=== PATIENT | female | born 1930 | race Caucasian/White ===

== ENCOUNTER 2018-01-11 21:40 | Emergency (ER) | payer OTHER ==
[~2018-01-11] VITALS: Ht 167.6 cm; Wt 81.6 kg
[2018-01-11 21:42] VITALS: BP_SYST 129
[2018-01-11] MEDS ORDERED: NACL 0.9% 1,000 ML IV ONE (21:48)
[2018-01-11 22:11] LABS: BASOPHILS # (AUTO) 0.1 K/uL (0.0-0.2); BASOPHILS % (AUTO) 0.6 % (0.0-2.0); EOSINOPHILS # (AUTO) 0.4 K/uL (0.0-0.4); EOSINOPHILS % (AUTO) 4.6 % (0.0-4.0); HEMATOCRIT 27.5 % (36-48); HEMOGLOBIN 8.9 g/dL (12.0-16.0); LYMPHOCYTES # (AUTO) 1.3 K/uL (1.0-5.5); MEAN CORPUSCULAR HEMOGLOBIN 31 pg (27-31); MEAN CORPUSCULAR HGB CONC 33 % (32-36); MEAN CORPUSCULAR VOLUME 94 fL (79.0-98.0); MONOCYTES # (AUTO) 0.8 K/uL (0.0-1.0); MONOCYTES % (AUTO) 8.4 % (1.7-9.3); NEUTROPHILS # (AUTO) 6.6 K/uL (1.8-7.7); NEUTROPHILS % (AUTO) 72.4 % (40.0-70.0); PLATELET COUNT (AUTO) 278 K/uL (130-430); RED BLOOD CELL COUNT(AUTO) 2.93 MIL/uL (4.2-6.2); RED CELL DISTRIBUTION WIDTH 13.3 % (9.0-15.0); WHITE BLOOD COUNT (AUTO) 9.2 K/uL (4.8-10.8)
[2018-01-11 22:31] LABS: ANION GAP 8 (5-15); CALCIUM 9.6 mg/dL (8.4-11.0); CHLORIDE 97 mmol/L (98-107); CREATININE 2.06 mg/dL (0.55-1.30); GLUCOSE 107 mg/dL (70-99); POTASSIUM 4.5 mmol/L (3.5-5.1); SODIUM SERUM 130 mmol/L (136-145); UREA NITROGEN, BLOOD 36 mg/dL (8-21)
[2018-01-11 22:37] LABS: ALANINE AMINOTRANSFERASE 22 U/L (12-78); ALBUMIN 3.2 g/dL (3.4-4.8); AMYLASE 175 U/L (0-100); ASPARTATE AMINOTRANSFERASE 17 U/L (10-37); LIPASE 302 U/L (73-393); TOTAL BILIRUBIN 0.3 mg/dL (0.0-1.0)
[2018-01-11 22:40] LABS: PROTHROMBIN TIME 9.9 SECS (9.5-12.5)
[2018-01-11 22:42] LABS: BILIRUBIN,URINE NEGATIVE (NEGATIVE); BLOOD, URINE NEGATIVE (NEGATIVE); CLARITY/URINE SL HAZY (CLEAR); COLOR,URINE YELLOW (YELLOW); GLUCOSE,URINE NEGATIVE (NEGATIVE); KETONES,URINE NEGATIVE (NEGATIVE); LEUKOCYTE ESTERASE ,URINE 2+ (NEGATIVE); NITRITE, URINE POSITIVE (NEGATIVE); PROTEIN URINE NEGATIVE (NEGATIVE); UROBILINOGEN,URINE 0.2 (0.2-1.0)
[2018-01-11 22:57] LABS: BACTERIA,URINE MANY /HPF (None Seen); RBC,URINE 0-3 /HPF (0-3); WBC,URINE 50-80 /HPF (0-3)
[2018-01-11] MEDS: cefTRIAXone 1 GM IVPB PREMIX 50 ML IV ONE ×2 (23:26→23:39)
[2018-01-11] MEDS ORDERED: ACET-2165 PO (23:36)
[2018-01-11] MEDS ORDERED: ASPI-859 PO (23:37)
[2018-01-11] MEDS ORDERED: CLOP75TA32 PO (23:37)
[2018-01-11] MEDS ORDERED: MELO15TA13 PO (23:37)
[2018-01-11] MEDS ORDERED: SIMV20TA2 PO (23:37)
[2018-01-11] MEDS ORDERED: LEVO50TA8 PO (23:37)
[2018-01-11] MEDS ORDERED: FURO-149 PO (23:37)
[2018-01-11] MEDS ORDERED: BACL10TA PO (23:37)
[2018-01-11] MEDS ORDERED: POTA8TAB4 PO (23:37)
[2018-01-11] MEDS ORDERED: BENA40TA2 PO (23:37)
[2018-01-11] MEDS ORDERED: LORA10TA7 PO (23:37)
[2018-01-11] MEDS ORDERED: ALBMDI INH (23:37)
[2018-01-12 01:20] VITALS: BP_SYST 132
== END 2018-01-12 01:20 | disposition home or self-care (01) ==
LOC: SED 21:40
DX: R55 Syncope and collapse (principal); K59.00 Constipation, unspecified; N39.0 Urinary tract infection, site not specified; J44.9 Chronic obstructive pulmonary disease, unspecified; Z90.710 Acquired absence of both cervix and uterus; Z88.5 Allergy status to narcotic agent; Z79.899 Other long term (current) drug therapy
CPT/HCPCS: 36415; 71045; 80053; 81000; 82150; 82550; 83605; 83690; 84484; 85025; 85610; 85730; 87040; 87086; 93005; 96361; 96365; 99285; J0696; J7030

== ENCOUNTER 2018-03-22 02:30 | Inpatient (IN) | payer BC, OTHER ==
[2018-03-22] VITALS (7 sets, daily range): BP systolic 131–177
[~2018-03-22] VITALS: Ht 165.1 cm; Wt 85.7 kg
[~2018-03-22 02:30] MED LIST: ACET-2165 PO; ALBMDI INH; ASPI-859 PO; BACL10TA PO; BENA40TA2 PO; CLOP75TA32 PO; FURO-149 PO; LEVO50TA8 PO; LORA10TA7 PO; MELO15TA13 PO; POTA8TAB4 PO; SIMV20TA2 PO
--- NOTE | 2018-03-22 02:30 | NUR ---
Patient to ER bed 6 to gown for evaluation. Side rails up. Report given to CLAY Dunlap.
--- NOTE | 2018-03-22 02:45 | NUR ---
Patient came in complaining of nausea, diarrhea, dizziness for 4 hours. Pt denies being in any pain. Pt has a fever of 100.2 in the ED. Pt has history of hyperlipidemnia, syncope, muscle weakness, COPD, Diabetes type 2, hypothyroidism, pylonephrititis, TIA. Pt states that she has weakness on both arms and is unable to move them due to falling so many times. Both bilateral legs appear to be warm and hard to move. No other complaints/injuries. Will cont .to monitor.
--- NOTE | 2018-03-22 03:00 | NUR ---
ER at bedside examining patient.
[2018-03-22] MEDS ORDERED: NACL 0.9% 1,000 ML IV ONE (03:45)
--- NOTE | 2018-03-22 04:24 | NUR ---
# 14 FR In and Out catheter with use of sterile technique. Immediate return of 150 ml yellow urine noted. Pt tolerated procedure well.
[2018-03-22 04:38] LABS: BASOPHILS % (AUTO) 0.2 % (0.0-2.0); EOSINOPHILS % (AUTO) 0.2 % (0.0-4.0); HEMATOCRIT 36.2 % (36-48); HEMOGLOBIN 11.9 g/dL (12.0-16.0); LYMPHOCYTES # (AUTO) 0.4 K/uL (1.0-5.5); LYMPHOCYTES % (AUTO) 2.6 % (20.5-51.5); MEAN CORPUSCULAR HEMOGLOBIN 31 pg (27-31); MEAN CORPUSCULAR HGB CONC 33 % (32-36); MEAN CORPUSCULAR VOLUME 94 fL (79.0-98.0); MONOCYTES % (AUTO) 6.7 % (1.7-9.3); NEUTROPHILS # (AUTO) 13.4 K/uL (1.8-7.7); NEUTROPHILS % (AUTO) 90.3 % (40.0-70.0); PLATELET COUNT (AUTO) 240 K/uL (130-430); RED BLOOD CELL COUNT(AUTO) 3.87 MIL/uL (4.2-6.2); WHITE BLOOD COUNT (AUTO) 14.8 K/uL (4.8-10.8)
[2018-03-22 04:45] LABS: ANION GAP 9 (5-15); CALCIUM 9.6 mg/dL (8.4-11.0); CHLORIDE 102 mmol/L (98-107); CREATININE 1.21 mg/dL (0.55-1.30); GLUCOSE 151 mg/dL (70-99); POTASSIUM 4.6 mmol/L (3.5-5.1); SODIUM SERUM 135 mmol/L (136-145); UREA NITROGEN, BLOOD 24 mg/dL (8-21)
[2018-03-22] MEDS ORDERED: LEVOFLOXACIN 500 MG/D5W 100 ML IV ONE (04:45)
[2018-03-22 04:49] LABS: ALANINE AMINOTRANSFERASE 18 U/L (12-78); ALBUMIN 3.5 g/dL (3.4-4.8); ASPARTATE AMINOTRANSFERASE 14 U/L (10-37); TOTAL BILIRUBIN 0.4 mg/dL (0.0-1.0)
--- NOTE | 2018-03-22 05:00 | NUR ---
Dr. Elizabeth from insurance called in regards to Pt. MD Dr. Dennison informed and transferred call to.
[2018-03-22 05:06] LABS: BILIRUBIN,URINE NEGATIVE (NEGATIVE); BLOOD, URINE 1+ (NEGATIVE); CLARITY/URINE CLEAR (CLEAR); COLOR,URINE YELLOW (YELLOW); GLUCOSE,URINE NEGATIVE (NEGATIVE); KETONES,URINE NEGATIVE (NEGATIVE); LEUKOCYTE ESTERASE ,URINE NEGATIVE (NEGATIVE); NITRITE, URINE NEGATIVE (NEGATIVE); PH,URINE 5.5 (5.0-8.0); PROTEIN URINE NEGATIVE (NEGATIVE); UROBILINOGEN,URINE 0.2 (0.2-1.0)
[2018-03-22 05:15] LABS: BACTERIA,URINE FEW /HPF (None Seen); MUCUS,URINE None Seen /LPF (None Seen); WBC,URINE 0-3 /HPF (0-3); YEAST,URINE None Seen /HPF (None Seen)
--- NOTE | 2018-03-22 05:20 | NUR ---
Pt went to radiology in stable condition.
--- NOTE | 2018-03-22 05:30 | NUR ---
decision support manager, Sandra, called in regards to transferring patient. Sandra requested for paperwork to faxed in order to review case. Sandra stated, she will call back with more information.
--- NOTE | 2018-03-22 05:38 | NUR ---
Pt returned from radiology in stable condition.
--- NOTE | 2018-03-22 05:48 | NUR ---
first and second set of Blood cultures obtained.
--- NOTE | 2018-03-22 06:06 | NUR ---
Pt started on levoflaxcin IVF per MD order. Pt tolerating well. Will cont. to monitor.
[2018-03-22] MEDS ORDERED: fentaNYL CITRATE/PF 100 MCG/2 ML AMP IVP ONE (07:30)
[2018-03-22] MEDS ORDERED: ACETAMINOPHEN 325 MG TABLET PO PRN (07:30)
--- NOTE | 2018-03-22 07:30 | NUR ---
Pt medicated for pain. Pt tolerated well.
--- NOTE | 2018-03-22 08:05 | NUR ---
Patient will be admitted to care of . Admitted to MED/SURG unit. Will go to room 105B. Belongings list completed. Summary report printed. Report will be given at bedside.
--- NOTE | 2018-03-22 08:07 | NUR ---
ADMISSION NOTE Received patient from ER via germaine, received report from MICHAEL WILLIAMSON. Patient admitted with diagnosis of ACUTE COLITIS. Patient oriented to hospital routine, call light, toileting and safety-patient verbalized understanding.
--- NOTE | 2018-03-22 08:29 | NUR ---
CONSULT ID FEVER/ACUTE COLITIS DR KIRKLAND [phone] S/W MIKEY SEGURA
--- NOTE | 2018-03-22 08:30 | NUR ---
CONSULT GI ACUTE COLITIS DR BUENROSTRO [phone] DR PIZARRO FISHING TACKLE REPAIRER S/W MIKEY EXCHANGE
--- NOTE | 2018-03-22 09:55 | NUR ---
NOTE: RECEIVED REPORT FROM ISAIAH KHAN. PATIENT ASLEEP IN BED WITH NO SIGNS OF DISTRESS. PATIENT ON ROOM AIR. BED IN LOWEST POSITION WITH SIDE RAILS UP. CALL LIGHT IS IN REACH. WILL CONTINUE TO MONITOR.
[2018-03-22] MEDS: POTASSIUM CHLORIDE 20 MEQ in D5/0.45 NS 1,000 ML IV SCH ×2 (10:33→20:59)
--- NOTE | 2018-03-22 13:30 | NUR ---
NOTE: GAVE PATIENT SCHEDULED MEDICATION. PATIENT HAD BOWEL MOVEMENT. PATIENT WAS CLEANED AND REPOSITIONED. WILL CONTINUE TO MONITOR.
[2018-03-22] MEDS: metroNIDAZOLE 500 mg/NS 100 ML IV SCH ×2 (13:34→20:59)
[2018-03-22] MEDS ORDERED: LevALBUTEROL HCL 1.25 MG/0.5 ML *CONC.* VIAL.NEB (XOPENEX CONC.) INH PRN (14:15)
[2018-03-22] MEDS: ASPIRIN 81 MG TABLET(ECOTRIN) PO ONE ×2 (15:04→15:05)
--- NOTE | 2018-03-22 15:09 | NUR ---
NOTE: PATIENT ASLEEP IN BED WITH NO SIGNS OF DISTRESS. GAVE PATIENT SCHEDULED MEDICATION. PATIENT REFUSED ASPIRIN BECAUSE SHE SAID SHE TAKES IT WITH PLAV[facility] AND DR PIERCE ORDER THAT. PATIENT HAS NO FURTHER REQUESTS. WILL CONTINUE TO MONITOR.
[2018-03-22] MEDS: LevALBUTEROL HCL 1.25 MG/0.5 ML *CONC.* VIAL.NEB (XOPENEX CONC.) INH SCH ×2 (15:25→22:03)
[2018-03-22] MEDS: cefTRIAXone 1 GM in D5W 50 ML IV SCH (18:45)
--- NOTE | 2018-03-22 18:52 | NUR ---
CLOSING NOTE: PATIENT IN BED TALKING TO FAMILY AT BEDSIDE. PATIENT ON 2L NC. PATIENT HAS FLUIDS INFUSING. GAVE PATIENT SCHEDULED MEDICATIONS. WENT OVER PATIENT'S HOME MEDICATIONS WITH FAMILY. ADDED 2 THAT WERENT THERE YET. PATIENT COMPLAINING OF PAIN. GAVE TYLENOL. IF TYLENOL NOT WORKING WILL ENDORSE TO VIDEO GAMES MECHANIC NURSE TO GET STRONGER PAIN MEDICATIONS. BED ALARM IS ON AND CALL LIGHT IS IN REACH. BED IS IN LOWEST POSITION WITH SIDE RAILS UP. WILL CONTINUE TO MONITOR AND GIVE REPORT TO VIDEO GAMES MECHANIC NURSE.
[2018-03-22] MEDS ORDERED: DOCU-144 PO (19:37)
[2018-03-22] MEDS ORDERED: BACL10TA PO (19:37)
--- NOTE | 2018-03-22 19:40 | NUR ---
Initial Note Received patient asleep but easily arousable. Patient is alert and oriented. Denies any pain, n/v or SOB at this time. On O2 at 2L/min via NC. On bedrest. IVF infusing. Skin intact and no peripheral edema noted. Care and monitoring will be provided per protocol. Needs attended. Call light within reach. Bed alarm on and at lowest position at all times. Kept warm and comfortable.
--- NOTE | 2018-03-22 20:50 | NUR ---
RN Note Due meds given along with IV antibiotic. Repositioned. Needs attended. Kept warm and comfortable.
[2018-03-22] MEDS: PANTOPRAZOLE SODIUM 40 MG/VIAL (PROTONIX) IVP SCH (20:52)
[2018-03-22] MEDS: NYSTATIN 30 GM TOPICAL CREAM TP SCH (20:53)
--- NOTE | 2018-03-22 22:00 | NUR ---
RN Note Asleep but arousable. Repositioned. IVF infusing. Kept comfortable.
[2018-03-23] VITALS: BP_SYST 104
--- NOTE | 2018-03-23 | NUR ---
RN Note Patient arousable. Given water as requested. No complaints. IVF infusing. Repositioned. Kept warm and comfortable.
--- NOTE | 2018-03-23 03:00 | NUR ---
RN Note Patient sleeping comfortably in bed. IVF infusing. No signs of acute distress.
[2018-03-23] MEDS: metroNIDAZOLE 500 mg/NS 100 ML IV SCH ×3 (05:20→21:18)
--- NOTE | 2018-03-23 06:15 | NUR ---
End Note Afebrile. VS stable. No complain of pain, SOB or n/v throughout the night. On O2 at 2L/min via NC. IVF infusing. Had several diarrhea. Incontinence and skin care provided. IV antibiotic given as ordered. AM labs today. Needs attended. Care and monitoring provided per protocol. Call light within reach. Bed alarm on and at lowest position at all times. Reposition Q2. Kept clean, dry and comfortable. Fall and skin precaution observed.
[2018-03-23 07:11] LABS: ANION GAP 10 (5-15); CALCIUM 8.7 mg/dL (8.4-11.0); CHLORIDE 100 mmol/L (98-107); CREATININE 1.19 mg/dL (0.55-1.30); GLUCOSE 107 mg/dL (70-99); PHOSPHORUS 3.3 mg/dL (2.7-4.5); POTASSIUM 4.4 mmol/L (3.5-5.1); SODIUM SERUM 131 mmol/L (136-145); UREA NITROGEN, BLOOD 19 mg/dL (8-21)
[2018-03-23] MEDS: LevALBUTEROL HCL 1.25 MG/0.5 ML *CONC.* VIAL.NEB (XOPENEX CONC.) INH SCH ×3 (07:13→23:10)
[2018-03-23 07:43] LABS: BASOPHILS % (AUTO) 0.4 % (0.0-2.0); EOSINOPHILS # (AUTO) 0.1 K/uL (0.0-0.4); EOSINOPHILS % (AUTO) 1.1 % (0.0-4.0); HEMATOCRIT 31.3 % (36-48); HEMOGLOBIN 10.1 g/dL (12.0-16.0); LYMPHOCYTES # (AUTO) 0.5 K/uL (1.0-5.5); LYMPHOCYTES % (AUTO) 5.8 % (20.5-51.5); MEAN CORPUSCULAR HEMOGLOBIN 30 pg (27-31); MEAN CORPUSCULAR HGB CONC 32 % (32-36); MEAN CORPUSCULAR VOLUME 94 fL (79.0-98.0); MONOCYTES % (AUTO) 11.7 % (1.7-9.3); NEUTROPHILS # (AUTO) 7.1 K/uL (1.8-7.7); PLATELET COUNT (AUTO) 201 K/uL (130-430); RED BLOOD CELL COUNT(AUTO) 3.33 MIL/uL (4.2-6.2); WHITE BLOOD COUNT (AUTO) 8.7 K/uL (4.8-10.8)
--- NOTE | 2018-03-23 08:00 | NUR ---
MD ROUNDS SEEN BY DR. JUAREZ MD STATED TO KEEP ON CLEAR LIQUIDS FOR NOW.
--- NOTE | 2018-03-23 08:12 | NUR ---
OPENING NOTE PATIENT RECEIVED RESTING IN BED, PATIENT'S OXYGEN SATURATION IS 95% ON 2L NASAL CANNULA, PATIENT STATES SLIGHT PAIN IN RIGHT GROIN, NO ACUTE DISTRESS NOTED, ASSESSMENT COMPLETED, PATIENT TOLERATED BREAKFAST WELL, ASSESSMENT COMPLETED, EDUCATED PATIENT ON PLAN OF CARE AND CALL LIGHT SYSTEM, WILL CONTINUE TO MONITOR, SAFETY PRECAUTIONS IN PLACE, BED IN LOWEST POSITION, BED ALARM ON, CALL LIGHT WITHIN REACH.
[2018-03-23 08:22] VITALS: BP_SYST 147
[2018-03-23] MEDS: BENAZEPRIL HCL 20 MG TABLET (LOTENSIN) PO SCH (08:36)
[2018-03-23] MEDS: PANTOPRAZOLE SODIUM 40 MG/VIAL (PROTONIX) IVP SCH ×2 (08:36→21:18)
[2018-03-23] MEDS: HYDROcodone/ACETAMIN 5-325 MG TAB (NORCO/ VICODIN) PO PRN ×2 (08:37→18:36)
[2018-03-23] MEDS: NYSTATIN 30 GM TOPICAL CREAM TP SCH ×2 (08:39→21:26)
[2018-03-23] MEDS ORDERED: LEVOTHYROXINE SODIUM 0.05 MG TABLET PO SCH ×2 (09:00)
--- NOTE | 2018-03-23 10:18 | NUR ---
Nutrition Update Gómez Scale 14 noted. Pt admitted for acute colitis. Diet: clear liquid BMI: 31.6 kg/m2 RD to follow per nutrition care standards.
[2018-03-23] MEDS: POTASSIUM CHLORIDE 20 MEQ in D5/0.45 NS 1,000 ML IV SCH ×2 (10:19→19:43)
--- NOTE | 2018-03-23 11:15 | NUR ---
NOTES PATIENT HAD A BOWEL MOVEMENT, STOOL IS LOOSE AND DARK BROWN, STOOL SAMPLE SENT TO LAB, PATIENT WAS CLEANED AND POSITIONED FOR COMFORT, RIGHT GROIN PAIN IS CONTROLLED BY NORCO AT THIS TIME.
[2018-03-23 12:09] VITALS: BP_SYST 129
--- NOTE | 2018-03-23 14:12 | NUR ---
DC Planning: updated Linita/CM at [facility] # [phone], fax# . Pt. is on IV Flagyl, PO Levaquin,Na 131, pending Cdiff result.
--- NOTE | 2018-03-23 14:23 | NUR ---
NOTES PATIENT IS RESTING IN BED, PAIN IS CONTROLLED AT THIS TIME, PATIENT DENIES ANY ACUTE DISTRESS, SHORTNESS OF BREATH UPON EXERTION IS NOTED, WILL CONTINUE TO MONITOR, SAFETY PRECAUTIONS IN PLACE, CALL LIGHT WITHIN REACH.
[2018-03-23 16:00] VITALS: BP_SYST 153
--- NOTE | 2018-03-23 16:10 | NUR ---
SPOKE TO DR. JHONNY FRIED MADE AWARE OF MAGNESIUM LEVEL AND DVT PROPHYLAXIS.
[2018-03-23] MEDS: cefTRIAXone 1 GM in D5W 50 ML IV SCH (17:33)
--- NOTE | 2018-03-23 18:20 | NUR ---
CLOSING NOTE PATIENT RESTING IN BED, PAIN IS CONTROLLED AT THIS TIME, PATIENT TOLERATED DINNER WELL, IVF INFUSING WELL, SHORTNESS OF BREATH NOTED UPON EXERTION, ALL NEEDS WERE MET THROUGHOUT SHIFT, WILL ENDORSE REPORT TO ONCOMING NURSE, SAFETY PRECAUTIONS IN PLACE, BED ALARM ON, CALL LIGHT WITHIN REACH.
--- NOTE | 2018-03-23 18:35 | NUR ---
MD ROUNDS DR. BARRY AT BEDSIDE TALKING TO PATIENT AND FAMILY.
[2018-03-23] MEDS ORDERED: MAGNESIUM SULFATE 4 GM in D5W 250 ML IV ONE (18:45)
[2018-03-23] MEDS ORDERED: MAGNESIUM SULFATE IN WATER 100 ML IV ONE (18:49)
--- NOTE | 2018-03-23 19:30 | NUR ---
Initial Notes Received handoff report from offgoing nurse at the bedside. Patient is awake and alert, resting comfortably in bed. No SOB, no acute distress, no complaints of pain. Bed is locked, in the lowest position, 2x side rails up, bed alarm is on. Call light is within reach. Explained plan of care to the patient, patient verbalized understanding. Will continue with plan of care.
[2018-03-23 20:00] VITALS: BP_SYST 136
--- NOTE | 2018-03-23 21:45 | NUR ---
Patient is resting comfortably in bed with eyes closed, easily aroused by voice stimuli. No SOB, no acute distress, no complaints of pain at this time. Bed is locked, in the lowest position, 2x side rails up, bed alarm is on. Call light is within reach. Encouraged patient to call for assistance.
--- NOTE | 2018-03-24 00:17 | NUR ---
Patient is resting comfortably in bed with eyes closed. Breathing is even and unlabored with visible chest rise and fall noted. IV site is intact, currently infusing IVF at the ordered rate, see eMAR. Bed is locked, in the lowest position, 2x side rails up, bed alarm is on. Call light is within reach.
[2018-03-24 00:39] VITALS: BP_SYST 124
--- NOTE | 2018-03-24 03:09 | NUR ---
Patient is resting comfortably in bed. Provided more pillows for the patient per patient request. Bed is locked, in the lowest position, 2x side rails up, bed alarm is on. Call light is within reach. Encouraged patient to call.
--- NOTE | 2018-03-24 04:50 | NUR ---
Provided incontinence care for the patient. Patient is now clean and dry, resting comfortably in bed. Bed is locked, in the lowest position, 2x side rails up, bed alarm is on. Call light is within reach. Encouraged patient to call for assistance.
[2018-03-24] MEDS: HYDROcodone/ACETAMIN 5-325 MG TAB (NORCO/ VICODIN) PO PRN ×3 (06:05→21:05)
[2018-03-24] MEDS: LEVOTHYROXINE SODIUM 0.05 MG TABLET PO SCH (06:06)
[2018-03-24] MEDS: metroNIDAZOLE 500 mg/NS 100 ML IV SCH ×3 (06:18→21:05)
--- NOTE | 2018-03-24 07:35 | NUR ---
Closing Notes Handoff report given to oncoming dayshift nurse at the bedside. Patient is awake and alert, resting comfortably in bed. No SOB, no acute distress, no complaints of pain. Bed is locked, in the lowest position, 2x side rails up, bed alarm is on. Call light is within reach. Fall and safety precautions maintained. All needs have been met during this shift.
[2018-03-24] MEDS: LevALBUTEROL HCL 1.25 MG/0.5 ML *CONC.* VIAL.NEB (XOPENEX CONC.) INH SCH ×3 (07:37→23:13)
[2018-03-24 08:13] VITALS: BP_SYST 136
--- NOTE | 2018-03-24 08:16 | NUR ---
AM NOTES Patient is awake, alert, orientedx4 laying in bed. No s/s of acute distress, no SOB. Breathing even and unlabored. Left 20G IV site intact, patent, dressing is dry, no s/s of infiltration. Bed in lowest position, bed alarm on, call light within reach, oriented to room routine, patient verbalized understanding.
[2018-03-24] MEDS: PANTOPRAZOLE SODIUM 40 MG/VIAL (PROTONIX) IVP SCH ×2 (09:10→21:05)
[2018-03-24] MEDS: BENAZEPRIL HCL 20 MG TABLET (LOTENSIN) PO SCH (09:11)
[2018-03-24] MEDS: NYSTATIN 30 GM TOPICAL CREAM TP SCH ×2 (09:12→21:06)
--- NOTE | 2018-03-24 10:11 | NUR ---
Dr. Thompson is called about patient's home medication and DVT prophylaxis. Awaiting call back.
[2018-03-24] MEDS: ONDANSETRON HCL 4 MG/2 ML VIAL IVP PRN ×2 (10:57→16:04)
--- NOTE | 2018-03-24 11:00 | NUR ---
VOMITING Patient vomited moderate amount of brown emesis, liquid no sediments. Zofran given IVP. Patient placed in high fowlers position. Will cont. to monitor.
--- NOTE | 2018-03-24 11:30 | NUR ---
IV RE-INSERTION: Restarted a 22G on Right hand. Successful after 1 attempt, good back flow of blood, flushes well. Will observe for any signs of infiltration. Removed previous IV site, no active bleeding. Addendum: 03/24/18 at 1522 by Radha Palacios RN IV REINSERTION CORRECTION Left 20g IV site SL. Flushes well.
[2018-03-24 12:00] VITALS: BP_SYST 129
--- NOTE | 2018-03-24 12:48 | NUR ---
Dr. Thompson is called about patient's home medication and DVT prophylaxis. Awaiting call back.
[2018-03-24] MEDS: POTASSIUM CHLORIDE 20 MEQ in D5/0.45 NS 1,000 ML IV SCH (13:41)
--- NOTE | 2018-03-24 14:11 | NUR ---
ROUNDS Patient laying in bed resting, no s/s of distress or SOB. Patient consumed small portion of lunch, tolerated well. All morning and afternoon meds passed. IV site patent, intact, dressing is dry. Bilateral hands and legs elevated. Will cont. to monitor.
--- NOTE | 2018-03-24 15:09 | NUR ---
LAB AT BEDSIDE Lactic acid drawn.
--- NOTE | 2018-03-24 15:11 | NUR ---
Dietitian Recommendations * Recommend continuing clear liquid diet per MD * Recommend D/C Ensure Clear TID LP, RD Please refer to Nutrition Assessment for details.
[2018-03-24] MEDS ORDERED: IOHEXOL 100 ML IV ONE (15:25)
--- NOTE | 2018-03-24 15:30 | NUR ---
TAKEN TO CT Patient transported to CT angio with IV contrast. Consent signed.
--- NOTE | 2018-03-24 15:47 | NUR ---
BACK FROM CT Patient reconnected to IVF. Bed in lowest position, call light within reach. Will cont. to monitor.
--- NOTE | 2018-03-24 16:05 | NUR ---
Dr. Thompson is called about patient's home medication and DVT prophylaxis. Awaiting call back.
[2018-03-24 16:17] VITALS: BP_SYST 132
[2018-03-24] MEDS: cefTRIAXone 1 GM in D5W 50 ML IV SCH (17:51)
--- NOTE | 2018-03-24 18:18 | NUR ---
CLOSING NOTES Patient laying in bed awake, alert, oriented x4. No s/s of acute distress or SOB. Breathing even and unlabored. All needs met throughout shift. Safety and fall precautions in place. Hands and legs elevated, feet are offloading. IV sites are patent, intact, dressings are dry. Patient connected to O2 2lpm, with saturation of 98%. Patient tolerated dinner clear liquid diet. Bed in lowest position, call light within reach. Will endorse to oncoming RN.
--- NOTE | 2018-03-24 19:30 | NUR ---
Initial Notes Received handoff report from offgoing nurse at the bedside. Patient is awake and alert, resting comfortably in bed. No SOB, no acute distress, no complaints of pain at this time. Bed is locked, in the lowest position, 2x side rails up, bed alarm is on. Call light is within reach. IV site infusing IVF at the ordered rate, see eMAR for details. Explained plan of care to the patient. Patient verbalized understanding. Will continue with plan of care.
[2018-03-24 21:00] VITALS: BP_SYST 128
--- NOTE | 2018-03-24 21:05 | NUR ---
Patient just completed full bed bath by the AGRISCIENCE TEACHER. Now complaining of severe hip and groin pain. Provided patient with NORCO PRN per MD order, see emar for details.
--- NOTE | 2018-03-25 | NUR ---
Patient is sleeping, resting comfortably in bed. No SOB, no acute distress, no signs of pain or facial grimacing at this time. Breathing is even and unlabored with visible chest rise and fall noted. Bed is locked, in the lowest position, 2x side rails up, bed alarm is on. Call light is within reach. Encouraged patient to call for assistance.
[2018-03-25 00:02] VITALS: BP_SYST 140
[2018-03-25] MEDS: POTASSIUM CHLORIDE 20 MEQ in D5/0.45 NS 1,000 ML IV SCH ×2 (01:03→14:41)
[2018-03-25] MEDS: HYDROcodone/ACETAMIN 5-325 MG TAB (NORCO/ VICODIN) PO PRN ×3 (01:05→19:49)
--- NOTE | 2018-03-25 01:07 | NUR ---
Patient is complaining of pain on her groin. Provided NORCO prn per MD order, see emar for details.
--- NOTE | 2018-03-25 04:38 | NUR ---
Patient is awake and alert, resting comfortably in bed. INDEPENDENT CROP CONSULTANT had just completed incontinence care. No SOB, no acute distress, no complaints of pain. Patient turned and repositioned for comfort. Bed is locked, in the lowest position, 2x side rails are up. IV site is intact, dressing clean and dry, currently infusing IVF at the ordered rate, see eMAR. Call light is within reach. Encouraged patient to call for assistance.
[2018-03-25] MEDS: LEVOTHYROXINE SODIUM 0.05 MG TABLET PO SCH (06:08)
[2018-03-25] MEDS: metroNIDAZOLE 500 mg/NS 100 ML IV SCH ×2 (06:08→14:40)
--- NOTE | 2018-03-25 06:55 | NUR ---
Pressing Machine Tender called and stated that the patient refused morning labs, but will come back again later to try again.
[2018-03-25] MEDS: LevALBUTEROL HCL 1.25 MG/0.5 ML *CONC.* VIAL.NEB (XOPENEX CONC.) INH SCH ×2 (07:16→15:42)
--- NOTE | 2018-03-25 07:45 | NUR ---
Closing Notes Handoff report given to oncoming dayshift nurse at the bedside. Patient is awake and alert, resting comfortably in bed. No SOB, no acute distress, no complaints of pain at this time. Bed is locked, in the lowest position, 2x side rails up, bed alarm is on. Call light is within reach. Fall and safety precautions maintained. All needs have been met during this shift.
[2018-03-25 08:00] VITALS: BP_SYST 142
--- NOTE | 2018-03-25 08:00 | NUR ---
AM NOTES PT IN BED, EATING BREAKFAST, DENIES ANY NAUSEA AND VOMITING AT THIS TIME. DENIES ANY PAIN OR DISCOMFORT. IVF INFUSING WELL. INCONTINENT OF BOWEL AND BLADDER. UP WITH PHYSICAL THERAPY. SAFETY PRECAUTION OBSERVED. CALL LIGHT WITHIN REACH. UPDATE PLAN OF CARE. WILL MONITOR.
[2018-03-25 08:41] LABS: HEMOGLOBIN 11.7 g/dL (12.0-16.0); MEAN CORPUSCULAR HEMOGLOBIN 31 pg (27-31); PLATELET COUNT (AUTO) 219 K/uL (130-430)
[2018-03-25 08:49] LABS: ANION GAP 9 (5-15); CALCIUM 9.5 mg/dL (8.4-11.0); CHLORIDE 99 mmol/L (98-107); CREATININE 1.16 mg/dL (0.55-1.30); GLUCOSE 115 mg/dL (70-99); PHOSPHORUS 3.6 mg/dL (2.7-4.5); POTASSIUM 4.8 mmol/L (3.5-5.1); SODIUM SERUM 129 mmol/L (136-145); UREA NITROGEN, BLOOD 11 mg/dL (8-21)
[2018-03-25 08:58] LABS: NEUTROPHILS % (AUTO) 69.6 % (40.0-70.0)
[2018-03-25 08:59] LABS: BASOPHILS % (AUTO) 0.3 % (0.0-2.0); EOSINOPHILS # (AUTO) 0.6 K/uL (0.0-0.4); EOSINOPHILS % (AUTO) 8.8 % (0.0-4.0); HEMATOCRIT 35.3 % (36-48); LYMPHOCYTES # (AUTO) 0.7 K/uL (1.0-5.5); MEAN CORPUSCULAR HGB CONC 33 % (32-36); MEAN CORPUSCULAR VOLUME 92 fL (79.0-98.0); MONOCYTES # (AUTO) 0.8 K/uL (0.0-1.0); MONOCYTES % (AUTO) 11.3 % (1.7-9.3); NEUTROPHILS # (AUTO) 5.3 K/uL (1.8-7.7); RED BLOOD CELL COUNT(AUTO) 3.85 MIL/uL (4.2-6.2); RED CELL DISTRIBUTION WIDTH 13.4 % (9.0-15.0); WHITE BLOOD COUNT (AUTO) 7.4 K/uL (4.8-10.8)
[2018-03-25] MEDS: ASPIRIN 81 MG TAB.CHEW PO SCH ×2 (09:00→09:03)
[2018-03-25] MEDS ORDERED: ENOXAPARIN SODIUM 30 MG/0.3 ML SYRINGE SUBCUT SCH (09:00)
[2018-03-25] MEDS: PANTOPRAZOLE SODIUM 40 MG/VIAL (PROTONIX) IVP SCH (09:03)
[2018-03-25] MEDS: BENAZEPRIL HCL 20 MG TABLET (LOTENSIN) PO SCH (09:04)
[2018-03-25] MEDS: NYSTATIN 30 GM TOPICAL CREAM TP SCH (09:05)
--- NOTE | 2018-03-25 12:01 | NUR ---
Notes patient is resting in bed, no signs of pain or distress noted at this time, shortness of breath noted upon exertion, IVF infusing well, will continue to monitor, safety precautions in place, call light within reach.
[2018-03-25 12:11] VITALS: BP_SYST 128
--- NOTE | 2018-03-25 12:51 | NUR ---
D/C Planning CM rec'd voice message from Christina at [facility] to call her back. LANDON returned call. Christina asks if we can get pt back to [facility] today. LANDON mentioned that there was a potential plan for SNF, Christina asks that we get the SNF packet to her ERICA. LANDON printed and faxed to Christina at [phone]. CM to f/u.
--- NOTE | 2018-03-25 14:57 | NUR ---
NOTES PATIENT RESTING IN BED WATCHING TV, IVF INFUSING WELL, PATIENT TOLERATED LUNCH WELL, PATIENT DENIES ANY PAIN OR DISTRESS AT THIS TIME, WILL CONTINUE TO MONITOR, SAFETY PRECAUTIONS IN PLACE, CALL LIGHT WITHIN REACH, ENCOURAGED TO USE CALL LIGHT WHEN NEEDED.
[2018-03-25 15:44] VITALS: BP_SYST 142
--- NOTE | 2018-03-25 15:58 | NUR ---
D/C Anticipated d/c. [facility] Has accepted the patient, patient going to room 17. transportation has been set up through [facility] and is set up on will call per Christina at [facility] Auth for [facility] is [id number]. Pending d/c order from dr Thompson. Addendum: 03/25/18 at 1711 by Fabi Kaur RN CM spoke with patient and daughter Sandip regarding d/c plan to [facility]. All are agreeable. CM informed RN who will call and set time for [facility] transport.
[2018-03-25 16:10] VITALS: BP_SYST 131; BP_SYST 141
--- NOTE | 2018-03-25 16:27 | NUR ---
Discharge Planning: DCP updated pt packet , with transportation information and took to nurse station. DCP told pt nurse DC order was needed and ambulance was on will call.
[2018-03-25 17:25] VITALS: BP_SYST 141
--- NOTE | 2018-03-25 17:27 | NUR ---
ARRANGED WITH [facility] AT 1930 GOING TO [facility]. SPOKE TO JOSE ALFREDO
--- NOTE | 2018-03-25 17:29 | NUR ---
NOTES PATIENT AGREED TO BE TRANSFERRED TO [facility], SPOKE TO DAUGHTER OF PATIENT AND INFORMED HER OF TRANSFER.
[2018-03-25] MEDS: cefTRIAXone 1 GM in D5W 50 ML IV SCH (17:41)
--- NOTE | 2018-03-25 17:56 | NUR ---
Notes Report given over the phone to Pee WILLIAMSON at [facility].
--- NOTE | 2018-03-25 18:43 | NUR ---
CLOSING NOTE PATIENT RESTING IN BED, PATIENT DENIES ANY PAIN AT THIS TIME, SHORTNESS OF BREATH NOTED UPON EXERTION, NO ACUTE DISTRESS NOTED, ALL NEEDS WERE MET THROUGHOUT SHIFT, IVF FLUIDS INFUSING WELL, WILL ENDORSE REPORT TO ONCOMING NURSE, SAFETY PRECAUTIONS IN PLACE, CALL LIGHT WITHIN REACH.
--- NOTE | 2018-03-25 19:30 | NUR ---
Initial Notes Received handoff report from offgoing nurse at the bedside. Patient is awake and alert, resting comfortably in bed. No SOB, no acute distress. Bed is locked, in the lowest position, 2x side rails up, bed alarm is on. Call light is within reach. Encouraged patient to call for assistance.
--- NOTE | 2018-03-25 19:50 | NUR ---
Patient is complaining of pain 10/10. Provided [place] PRN per MD order, see eMAR for details. Report given to EMT. IV site has been discontinued, catheter is intact. All hospital bands have been removed.
--- NOTE | 2018-03-25 20:08 | NUR ---
Patient has left the facility with EMT transport.
[2018-03-26 00:50] VITALS: BP_SYST 148
== END 2018-03-25 20:08 | DRG 392 ==
LOC: SED 02:30 → SMU 07:23
PROVIDERS: ADMIT Family Medicine; ATTEND Family Medicine
DX: A09 Infectious gastroenteritis and colitis, unspecified (principal); K57.92 Diverticulitis of intestine, part unspecified, without perforation or abscess without bleeding; K55.9 Vascular disorder of intestine, unspecified; R65.10 Systemic inflammatory response syndrome (SIRS) of non-infectious origin without acute organ dysfunction; I10 Essential (primary) hypertension; E03.9 Hypothyroidism, unspecified; M19.90 Unspecified osteoarthritis, unspecified site; E86.0 Dehydration; F03.90 Unspecified dementia, unspecified severity, without behavioral disturbance, psychotic disturbance, mood disturbance, and anxiety; Z96.642 Presence of left artificial hip joint; J44.9 Chronic obstructive pulmonary disease, unspecified; Z96.653 Presence of artificial knee joint, bilateral; Z88.5 Allergy status to narcotic agent; Z79.899 Other long term (current) drug therapy; Z86.73 Personal history of transient ischemic attack (TIA), and cerebral infarction without residual deficits
CPT/HCPCS: 36415; 80048; 80053; 81000-TC; 83605; 83735-TC; 84100-TC; 85025; 87040-TC; 87045-TC; 87046; 87081; 87230-TC; 94640; 94760; 96361; 96365; 96375; 97110-GP; 99285; C9113; J0696; J1650; J1956; J2405; J3010; J3475; J3480; J3490; J7060; J7612; Q9967

== ENCOUNTER 2019-05-25 05:30 | Emergency (ER) | payer OTHER ==
[~2019-05-25] VITALS: Ht 160 cm; Wt 86.2 kg
[~2019-05-25 05:30] MED LIST changes: -ACET-2165 PO; -BENA40TA2 PO; +BENA40TA8 PO; +DOCU-144 PO; -FURO-149 PO; -LORA10TA7 PO; -POTA8TAB4 PO
[2019-05-25 05:34] VITALS: BP_SYST 142
--- NOTE | 2019-05-25 05:34 | NUR ---
Patient to ER bed 3 to gown for evaluation. Side rails up. Report given to CLAY Sandhu.
--- NOTE | 2019-05-25 05:52 | NUR ---
Pt BIBA from [facility] w/ noted black emesis for 1 day. Pt has had unknown amount about emesis. Pt has Hx of high cholesterol, HTN, DM, COD, and Hypothyroidism. Pt is AAOx1, unable to provide any information, which is her baseline per EMS. Will continue to monitor.
--- NOTE | 2019-05-25 05:54 | NUR ---
RAC 20g noted, Pt brought in with IV. IV is patent, no infiltration noted, no leakage. IV site is C/D/I. Will continue to monitor.
[2019-05-25 06:26] LABS: BASOPHILS % (AUTO) 0.2 % (0.0-2.0); EOSINOPHILS % (AUTO) 0.1 % (0.0-4.0); HEMATOCRIT 39.9 % (36-48); HEMOGLOBIN 13.5 g/dL (12.0-16.0); LYMPHOCYTES # (AUTO) 0.3 K/uL (1.0-5.5); LYMPHOCYTES % (AUTO) 1.9 % (20.5-51.5); MEAN CORPUSCULAR HEMOGLOBIN 32 pg (27-31); MEAN CORPUSCULAR HGB CONC 34 % (32-36); MEAN CORPUSCULAR VOLUME 93 fL (79.0-98.0); MONOCYTES # (AUTO) 0.9 K/uL (0.0-1.0); MONOCYTES % (AUTO) 6.1 % (1.7-9.3); NEUTROPHILS % (AUTO) 91.7 % (40.0-70.0); PLATELET COUNT (AUTO) 215 K/uL (130-430); RED BLOOD CELL COUNT(AUTO) 4.29 MIL/uL (4.2-6.2); RED CELL DISTRIBUTION WIDTH 13.6 % (9.0-15.0); WHITE BLOOD COUNT (AUTO) 14.2 K/uL (4.8-10.8)
[2019-05-25 06:38] LABS: ANION GAP 9 (5-15); CALCIUM 10.5 mg/dL (8.4-11.0); CHLORIDE 95 mmol/L (98-107); CREATININE 1.77 mg/dL (0.55-1.30); GLUCOSE 128 mg/dL (70-99); POTASSIUM 3.9 mmol/L (3.5-5.1); SODIUM SERUM 130 mmol/L (136-145); UREA NITROGEN, BLOOD 31 mg/dL (8-21)
[2019-05-25 06:43] LABS: ALANINE AMINOTRANSFERASE 22 U/L (12-78); ALBUMIN 3.7 g/dL (3.4-4.8); ASPARTATE AMINOTRANSFERASE 12 U/L (10-37); TOTAL BILIRUBIN 0.8 mg/dL (0.0-1.0)
--- NOTE | 2019-05-25 06:47 | NUR ---
Dr. Gillespie at bedside examining Pt.
[2019-05-25 06:50] LABS: PROTHROMBIN TIME 9.9 SECS (9.5-12.5)
[2019-05-25 06:58] LABS: BILIRUBIN,URINE NEGATIVE (NEGATIVE); BLOOD, URINE 2+ (NEGATIVE); CLARITY/URINE TURBID (CLEAR); COLOR,URINE YELLOW (YELLOW); GLUCOSE,URINE NEGATIVE (NEGATIVE); KETONES,URINE NEGATIVE (NEGATIVE); LEUKOCYTE ESTERASE ,URINE 3+ (NEGATIVE); NITRITE, URINE POSITIVE (NEGATIVE); PROTEIN URINE TRACE (NEGATIVE); UROBILINOGEN,URINE 0.2 (0.2-1.0)
[2019-05-25] MEDS ORDERED: cefTRIAXone 1 GM IVPB PREMIX 50 ML IV ONE (07:00)
[2019-05-25] MEDS ORDERED: NACL 0.9% 1,000 ML IV ONE (07:00)
--- NOTE | 2019-05-25 07:10 | NUR ---
Report given to dayshift RN at bedside via SBAR approach.
--- NOTE | 2019-05-25 07:12 | NUR ---
Received report from Edson
[2019-05-25 07:14] LABS: BACTERIA,URINE MODERATE /HPF (None Seen); WBC,URINE 20-50 /HPF (0-3)
--- NOTE | 2019-05-25 07:30 | NUR ---
Dr. Figueroa spoke w/ Dr. Peguero. Currently trying to find placement per pt's insurance.
--- NOTE | 2019-05-25 08:23 | NUR ---
Unable to obtain med rec from pt at this time.
[2019-05-25] MEDS ORDERED: METOCLOPRAMIDE HCL 10 MG/2 ML VIAL IVP ONE (09:15)
--- NOTE | 2019-05-25 10:00 | NUR ---
PT RESTING IN BED COMFORTABLY. VSS, NO PAIN, OR DISTRESS AT THIS TIME.
--- NOTE | 2019-05-25 11:28 | NUR ---
pt given apple juice. Tolerated well.
--- NOTE | 2019-05-25 11:48 | NUR ---
Guy An, called to give transfer information for pt. Pt being transferred to [facility]. Room 215 Bed 1. [facility] ETA x 30 min. Accepting physician: Dr. Butterfield. Number for report
--- NOTE | 2019-05-25 12:05 | NUR ---
Patient to be transferred to [facility] Is being transferred due to higher level of care. Receiving facility has accepting physician and available space. ER physician has signed transfer form. Patient or responsible alliance party has agreed to transfer and signed form. Patient belongings inventoried and will be sent with patient. Copy of nursing notes, lab reports, EKG, Physicians Orders and X-rays to be sent with patient. Report called to Ilda at receiving facility. Receiving physician is Dr. Butterfield. [facility] has been called for transfer. ETA is 30minutes.
[2019-05-25] MEDS ORDERED: ONDANSETRON HCL 4 MG/2 ML VIAL IVP ONE (12:30)
[2019-05-25 12:56] VITALS: BP_SYST 142
--- NOTE | 2019-05-25 13:10 | NUR ---
ambulance here to transport the pt to [facility].
== END 2019-05-25 12:56 | disposition short-term general hospital (02) ==
LOC: SED 05:30
DX: K92.0 Hematemesis (principal); N39.0 Urinary tract infection, site not specified; J44.9 Chronic obstructive pulmonary disease, unspecified; Z88.5 Allergy status to narcotic agent; Z79.899 Other long term (current) drug therapy
CPT/HCPCS: 36415; 71045; 80053; 81000; 82962; 83605; 84484; 85025; 85610; 85730; 87040; 87086; 87186; 96365; 96375; 99285; J0696; J2405; J2765; J7030

== ENCOUNTER 2019-06-19 17:37 | Emergency (ER) | payer OTHER ==
[~2019-06-19] VITALS: Ht 167.6 cm; Wt 70.3 kg
[2019-06-19 17:42] VITALS: BP_SYST 104
[2019-06-19] MEDS ORDERED: fentaNYL CITRATE/PF 100 MCG/2 ML AMP IVP ONE (18:30)
[2019-06-19] MEDS ORDERED: ONDANSETRON HCL 4 MG/2 ML VIAL IVP ONE ×2 (18:30→21:15)
[2019-06-19 19:00] LABS: ANION GAP 12 (5-15); CALCIUM 9.5 mg/dL (8.4-11.0); CHLORIDE 87 mmol/L (98-107); CREATININE 3.82 mg/dL (0.55-1.30); GLUCOSE 137 mg/dL (70-99); POTASSIUM 5.3 mmol/L (3.5-5.1); UREA NITROGEN, BLOOD 70 mg/dL (8-21)
[2019-06-19 19:05] LABS: ALANINE AMINOTRANSFERASE 28 U/L (12-78); ALBUMIN 2.7 g/dL (3.4-4.8); ASPARTATE AMINOTRANSFERASE 44 U/L (10-37); LIPASE 75 U/L (73-393); TOTAL BILIRUBIN 0.9 mg/dL (0.0-1.0)
[2019-06-19 19:06] LABS: SODIUM SERUM 119 mmol/L (136-145)
[2019-06-19 19:09] LABS: BASOPHILS % (AUTO) 0.1 % (0.0-2.0); EOSINOPHILS % (AUTO) 0.3 % (0.0-4.0); HEMATOCRIT 37.2 % (36-48); HEMOGLOBIN 12.4 g/dL (12.0-16.0); LYMPHOCYTES # (AUTO) 0.3 K/uL (1.0-5.5); LYMPHOCYTES % (AUTO) 2.4 % (20.5-51.5); MEAN CORPUSCULAR HEMOGLOBIN 31 pg (27-31); MEAN CORPUSCULAR HGB CONC 33 % (32-36); MEAN CORPUSCULAR VOLUME 92 fL (79.0-98.0); MONOCYTES # (AUTO) 1.2 K/uL (0.0-1.0); MONOCYTES % (AUTO) 10.4 % (1.7-9.3); NEUTROPHILS # (AUTO) 10.1 K/uL (1.8-7.7); NEUTROPHILS % (AUTO) 86.8 % (40.0-70.0); PLATELET COUNT (AUTO) 180 K/uL (130-430); RED BLOOD CELL COUNT(AUTO) 4.07 MIL/uL (4.2-6.2); RED CELL DISTRIBUTION WIDTH 14.4 % (9.0-15.0); WHITE BLOOD COUNT (AUTO) 11.6 K/uL (4.8-10.8)
[2019-06-19] MEDS ORDERED: NACL 0.9% 1,000 ML IV ONE (19:15)
[2019-06-19] MEDS ORDERED: MORPHINE 2 MG/ML INJ. SYRINGE IVP ONE ×2 (22:00→22:45)
[2019-06-19] MEDS ORDERED: ACETAMINOPHEN 325 MG TABLET PO ONE (22:00)
[2019-06-19 23:30] VITALS: BP_SYST 138
== END 2019-06-19 23:30 ==
LOC: SED 17:37
DX: E87.1 Hypo-osmolality and hyponatremia (principal); R10.9 Unspecified abdominal pain; R11.10 Vomiting, unspecified; J44.9 Chronic obstructive pulmonary disease, unspecified; Z88.5 Allergy status to narcotic agent; Z79.899 Other long term (current) drug therapy
CPT/HCPCS: 36415; 74176; 80053; 83605; 83690; 85025; 87040; 96361; 96374; 96375; 96376; 99285; J2270; J2405; J3010; J7030